=== PATIENT | male | born 1955 | race Caucasian/White ===

== ENCOUNTER → 2018-01-31 | Outpatient (CLI) | payer BC ==
[~2018-01-31] MED LIST: FOLIC ACID1 MG PO; LOW DOSE ASPIRI81 M1 PO; METHOTREXATE2.5 MG PO; ONE DAILY FOR1 EACH PO; OXYCODONE HCL5 MG PO; OXYCONTIN15 MG PO; PREDNISONE1 MG PO; RAYOS2 MG PO; ROBITUSSIN AC,T10 ML PO; TESSALON PERLE100 MG PO; ZOFRAN ODT4 MG PO
== END | disposition home or self-care (01) ==
LOC: CDC 14:47
DX: Z01.810 Encounter for preprocedural cardiovascular examination (principal)
CPT/HCPCS: 93000